=== PATIENT | female | born 1980 | race Caucasian/White ===

== ENCOUNTER 2024-07-29 09:22 | Outpatient (CLI) | payer BC | END 2024-07-29 20:23 | disposition home or self-care (01) | LOC: SMI 09:22 | PROVIDERS: ATTEND Specialist | DX: D25.9 Leiomyoma of uterus, unspecified (principal); N92.6 Irregular menstruation, unspecified; N94.6 Dysmenorrhea, unspecified | CPT/HCPCS: 72195 ==